=== PATIENT | female | born 1990 | race African-American/Black ===

== ENCOUNTER 2018-09-18 11:15 | Observation (INO) | payer MEDICAID ==
[~2018-09-18] VITALS: Ht 167.6 cm; Wt 72.6 kg
[2018-09-18] MEDS ORDERED: PREN-96 PO (12:25)
[2018-09-18] MEDS ORDERED: PROM25TA5 PO (12:25)
[2018-09-18] MEDS ORDERED: LACTATED RINGER'S 2,000 ML IV ONE (12:30)
[2018-09-18] MEDS ORDERED: ONDANSETRON HCL 4 MG/2 ML VIAL IV ONE (13:45)
== END 2018-09-18 14:10 | disposition home or self-care (01) | DRG 566 ==
LOC: LDRP 11:15
PROVIDERS: ADMIT Obstetrics & Gynecology; ATTEND Obstetrics & Gynecology
DX: O21.2 Late vomiting of pregnancy (principal); O23.43 Unspecified infection of urinary tract in pregnancy, third trimester; Z3A.30 30 weeks gestation of pregnancy
CPT/HCPCS: 59025; 81002; 96361; 96374; G0378; J2405; 96365; 96366